=== PATIENT | male | born 1945 | race Caucasian/White ===

== ENCOUNTER → 2017-02-26 | Outpatient (CLI) | payer MEDICARE, OTHER ==
[~2017-02-26] VITALS: Ht 172.7 cm; Wt 99.8 kg
[~2017-02-26] MED LIST: ASPI1TAB PO; BYDU1INJ SC; CENTTAB36 PO; GLYB5TA PO; INSUH10VL SC; INSULANT SC; JARD1TAB PO; LIDOCAINE 2% INJ 100 MG/5 ML SDV (FOR ANES.) As Ordered ONE; MICA40TA PO; MICA40TA2 PO; NS 1,000 ML IV ONE; OMEP20CA3 PO; PROPOFOL 200 MG/20 ML VIAL As Ordered ONE; SIMV20TA2 PO
--- NOTE | 2017-02-26 11:51 | ROOR ---
Patient Name: Gustavo Hayes Procedure Date: 02/26/2017 11:34 AM Date of : 1945 Age: 71 Room: [facility] Gender: Male Note Status: Finalized Procedure: Upper Endoscopy + Biopsies Indications: Follow-up of Jenkins's esophagus Providers: Antonino Lange MD Referring MD: GUILLAUME BIRMINGHAM Requesting Provider: Medicines: Monitored Anesthesia Care Complications: No immediate complications. Procedure: Pre-Anesthesia Assessment: - The heart rate, respiratory rate, oxygen saturations, blood pressure, adequacy of pulmonary ventilation, and response to care were monitored throughout the procedure. The Endoscope was introduced through the mouth, and advanced to the second part of duodenum. The upper GI endoscopy was accomplished without difficulty. The patient tolerated the procedure well. Findings: The Z-line was irregular and was found 40 cm from the incisors. Multiple biopsies were obtained with cold forceps for evaluation to rule out Jenkins's Esophagus randomly at the gastroesophageal junction. A small hiatal hernia was present. No other significant abnormalities were identified in a careful examination of the stomach. The exam of the duodenum was otherwise normal. Impression: - Z-line irregular, 40 cm from the incisors. - Small hiatal hernia. - Multiple biopsies were obtained at the gastroesophageal junction. - The examination was otherwise normal. Recommendation: - Patient has a contact number available for emergencies. The signs and symptoms of potential delayed complications were discussed with the patient. Return to normal activities tomorrow. Written discharge instructions were provided to the patient. - High fiber diet. - Discharge patient to home. - Continue present medications. - Await pathology results. - Telephone GI clinic for pathology results in 1 week. - Check Portal Online for Path Results.([email or web address] - Return to referring physician. - The findings and recommendations were discussed with the patient's family. Antonino Lange MD Antonino Lange MD 02/26/2017 11:51:17 AM This report has been signed electronically. Number of Addenda: 0 Note Initiated On: 02/26/2017 11:34 AM Estimated Blood Loss: Estimated blood loss: none.
[2017-02-26 12:20] VITALS: BP 140/79
== END | disposition home or self-care (01) ==
LOC: M OPP 10:54
PROVIDERS: ATTEND Internal Medicine Gastroenterology
DX: K22.70 Barrett's esophagus without dysplasia (principal); K22.8 Other specified diseases of esophagus; K44.9 Diaphragmatic hernia without obstruction or gangrene; K21.9 Gastro-esophageal reflux disease without esophagitis; E11.9 Type 2 diabetes mellitus without complications; R12 Heartburn; N31.9 Neuromuscular dysfunction of bladder, unspecified; K57.30 Diverticulosis of large intestine without perforation or abscess without bleeding; E78.5 Hyperlipidemia, unspecified; I10 Essential (primary) hypertension; L30.9 Dermatitis, unspecified; Z87.891 Personal history of nicotine dependence; Z79.82 Long term (current) use of aspirin; Z79.84 Long term (current) use of oral hypoglycemic drugs; Z79.4 Long term (current) use of insulin; Z79.899 Other long term (current) drug therapy

== ENCOUNTER → 2020-07-19 | Outpatient (REF) | payer MEDICARE, OTHER ==
[~2020-07-19] MED LIST changes: -ASPI1TAB PO; +ASPI81TA26 PO; -LIDOCAINE 2% INJ 100 MG/5 ML SDV (FOR ANES.) As Ordered ONE; -NS 1,000 ML IV ONE; +OMEP1CAP73 PO; -OMEP20CA3 PO; -PROPOFOL 200 MG/20 ML VIAL As Ordered ONE; -SIMV20TA2 PO; +SIMV20TA22 PO
[2020-07-19 15:07] LABS: MAU/CREAT RATIO 1252.6 MCG/MG (0.0-30.0)
== END ==
LOC: M LAB REF 12:58
PROVIDERS: ATTEND Nurse Practitioner Family
DX: E11.21 Type 2 diabetes mellitus with diabetic nephropathy (principal)

== ENCOUNTER → 2021-08-31 | Outpatient (CLI) | payer MEDICARE, OTHER ==
[~2021-08-31] MED LIST changes: -GLYB5TA PO; +GLYB5TAB6 PO
--- NOTE | 2021-08-31 11:54 | REP ---
INDICATION: PAIN COMPARISON: None TECHNIQUE: Five views FINDINGS: The compartments are symmetric and relatively well maintained. There is no fracture, dislocation, or subluxation. There is no prominent marginal osteophytosis. IMPRESSION: Within normal limits <Electronically signed by Brice Hollins > 08/31/21 0424
== END ==
LOC: M WUC 11:37
PROVIDERS: ATTEND Physician Assistant
DX: M25.562 Pain in left knee (principal)

== ENCOUNTER → 2022-02-24 | Outpatient (CLI) | payer MEDICARE, OTHER | LOC: M CARPUL 09:45 | PROVIDERS: ATTEND Internal Medicine Cardiovascular Disease | DX: R06.02 Shortness of breath (principal) ==

== ENCOUNTER → 2022-12-13 | Outpatient (CLI) | payer MEDICARE, OTHER | LOC: M WUC 13:25 | PROVIDERS: ATTEND Internal Medicine | DX: M94.0 Chondrocostal junction syndrome [Tietze] (principal) ==

== ENCOUNTER → 2025-02-23 | Outpatient (CLI) | payer MEDICARE, OTHER | LOC: M WUC 15:03 | PROVIDERS: ATTEND Physician Assistant | DX: M79.622 Pain in left upper arm (principal) ==

== ENCOUNTER → 2025-07-08 | Outpatient (CLI) | payer MEDICARE, OTHER ==
[2025-07-08 12:53] LABS: PLATELET COUNT, AUTOMATED 297 10^3/uL (150-450)
[2025-07-08 13:21] LABS: ALT/SGPT 30.0 U/L (7.0-40); AST/SGOT 27.0 U/L (<34); CALCIUM LEVEL 8.7 MG/DL (8.3-10.6); CARBON DIOXIDE LEVEL 28.0 MMOL/L (20-31); CHLORIDE LEVEL 101.0 MMOL/L (98-107); CREATININE FOR GFR 1.16 MG/DL (0.70-1.30); GLOMERULAR FILTRATION RATE 62.9 (>35); POTASSIUM SERUM 4.6 MMOL/L (3.5-5.1); SODIUM LEVEL 133.0 MMOL/L (136-145)
== END ==
LOC: M WUC 10:26
PROVIDERS: ATTEND Physician Assistant
DX: R26.81 Unsteadiness on feet (principal); E11.9 Type 2 diabetes mellitus without complications; E78.2 Mixed hyperlipidemia